=== PATIENT | female | born 1995 | race Caucasian/White ===

== ENCOUNTER 2018-11-26 18:57 | Emergency (ER) | payer OTHER ==
[2018-11-26] MEDS: ACETAMINOPHEN 325 MG TAB PO (22:54)
== END 2018-11-26 23:10 | disposition home or self-care (01) ==
LOC: FTE 18:57
DX: S50.01XA Contusion of right elbow, initial encounter (principal); S10.83XA Contusion of other specified part of neck, initial encounter; S00.531A Contusion of lip, initial encounter; Y08.89XA Assault by other specified means, initial encounter
CPT/HCPCS: 99282; Z7502

== ENCOUNTER 2018-11-30 19:21 | Emergency (ER) | payer OTHER ==
[2018-11-30] MEDS ORDERED: LORAZEPAM 1 MG TAB PO (21:30)
[2018-11-30] MEDS: IBUPROFEN 200 MG TAB PO (21:37)
== END 2018-11-30 23:13 | disposition home or self-care (01) ==
LOC: FTE 19:21
DX: J02.9 Acute pharyngitis, unspecified (principal)
CPT/HCPCS: 70490; 81025; 99284-25